=== PATIENT | male | born 1940 | race Caucasian/White ===

== ENCOUNTER → 2016-05-19 | Outpatient (CLI) | payer MEDICARE, OTHER ==
[~2016-05-19] MED LIST: ABILIFY5 MG PO; ASPI325T6 PO; ASPIRIN 32325 MG/TAB PO; ASPIRIN 81M81 MG/TA2 PO; COLESTID 1GM1 G PO; COZAAR100 MG PO; DESYREL 100MG100 MG PO; EFFEXOR-XR150 MG PO; FERROUS SULFATE65 MG PO; GLUCOPHAGE500 MG/TAB PO; HCTZ 25MG TAB25 MG PO; MINIPRESS 1M1 MG/CAP PO; NAPROSYN500 MG PO; NORCO 325 MG-51 TAB PO; NORCO 325 MG-7.1 TAB PO; PRILOSEC 20MG20 MG PO; PROZAC 20MG20 MG PO; ROXICODONE 55 MG/TAB PO; SENOKOT8.6 MG PO; THERAGRAN1 TA1 PO; TYLENOL 500MG500 MG PO; ZESTRIL2.5 MG PO; ZOCOR 40MG40 MG PO; ZOLOFT 100MG100 MG PO
== END ==
LOC: COL.RAD 08:59
DX: R07.89 Other chest pain (principal); C61 Malignant neoplasm of prostate; E11.9 Type 2 diabetes mellitus without complications; M15.8 Other polyosteoarthritis
CPT/HCPCS: A9503

== ENCOUNTER 2016-09-28 18:46 | Emergency (ER) | payer MEDICARE, OTHER ==
[~2016-09-28] VITALS: Wt 106.8 kg
[~2016-09-28 18:46] MED LIST changes: -COLESTID 1GM1 G PO; -COZAAR100 MG PO; -PROZAC 20MG20 MG PO
[2016-09-28] MEDS ORDERED: PROZAC 20MG20 MG PO (18:52)
[2016-09-28] MEDS ORDERED: COLESTID 1GM1 G PO (18:53)
[2016-09-28] MEDS ORDERED: COZAAR100 MG PO (18:53)
[2016-09-28] MEDS ORDERED: NORCO 325 MG-51 TAB PO (21:31)
[2016-09-28 22:11] VITALS: BP 143/77; PULSE 106; TEMP 99.5
== END 2016-09-28 22:15 | disposition home or self-care (01) ==
LOC: COL.ER 18:46
DX: S32.591A Other specified fracture of right pubis, initial encounter for closed fracture (principal); W01.10XA Fall on same level from slipping, tripping and stumbling with subsequent striking against unspecified object, initial encounter; Y92.009 Unspecified place in unspecified non-institutional (private) residence as the place of occurrence of the external cause; I10 Essential (primary) hypertension; E11.9 Type 2 diabetes mellitus without complications; Z85.46 Personal history of malignant neoplasm of prostate; F32.9 Major depressive disorder, single episode, unspecified
CPT/HCPCS: J1170; J2405

== ENCOUNTER → 2017-10-14 | Outpatient (REF) ==
[~2017-10-14] MED LIST changes: +COLESTID 1GM1 G PO; +COZAAR100 MG PO; +EYE DROP ORIGIN15 ML OP; +FLONASEALLERGY NS; +PROZAC 20MG20 MG PO
== END ==
LOC: ZLAB.WCH 08:26
DX: Z01.89 Encounter for other specified special examinations (principal)

== ENCOUNTER → 2018-01-23 | Outpatient (REF) ==
[2018-01-23 13:39] LABS: PSA-TOTAL < 0.10 ng/mL (0-4)
== END ==
LOC: ZLAB.WCH 12:36
PROVIDERS: Internal Medicine
DX: Z01.89 Encounter for other specified special examinations (principal)
CPT/HCPCS: G0103

== ENCOUNTER → 2018-03-03 | Outpatient (REF) | LOC: ZLAB.WCH 07:58 | DX: Z01.89 Encounter for other specified special examinations (principal) ==

== ENCOUNTER → 2018-03-28 | Outpatient (REF) ==
[2018-03-28 10:26] LABS: THYROID STIMULATING HORMONE 1.25 uIU/mL (0.465-4.680)
== END ==
LOC: ZLAB.WCH 09:33
PROVIDERS: Internal Medicine
DX: Z01.89 Encounter for other specified special examinations (principal)

== ENCOUNTER → 2018-11-11 | Outpatient (CLI) | payer MEDICARE, OTHER | LOC: COL.PUL 10:00 | DX: R06.02 Shortness of breath (principal) ==

== ENCOUNTER → 2018-11-29 | Outpatient (CLI) | payer MEDICARE, OTHER | LOC: COL.PUL 10:32 | DX: R06.02 Shortness of breath (principal); Z87.891 Personal history of nicotine dependence | CPT/HCPCS: J7674 ==

== ENCOUNTER → 2019-08-18 | Outpatient (CLI) | payer MEDICARE, OTHER | LOC: COL.RAD 13:16 | DX: M79.10 Myalgia, unspecified site (principal) | CPT/HCPCS: J3301; Q9967 ==

== ENCOUNTER → 2019-09-19 | Outpatient (CLI) | payer MEDICARE, OTHER | LOC: COL.RAD 12:03 | DX: M48.061 Spinal stenosis, lumbar region without neurogenic claudication (principal); M51.26 Other intervertebral disc displacement, lumbar region; Q76.49 Other congenital malformations of spine, not associated with scoliosis ==

== ENCOUNTER 2020-11-29 15:00 | Outpatient (RCR) | payer MEDICARE, OTHER | END 2020-12-06 15:09 | disposition home or self-care (01) | LOC: WSPT 15:00 | DX: Z51.89 Encounter for other specified aftercare (principal); Z98.1 Arthrodesis status ==